=== PATIENT | female | born 1980 | race Caucasian/White ===

== ENCOUNTER → 2025-09-05 09:50 | Outpatient (CLI) | payer OTHER, SELFPAY ==
--- NOTE | 2025-09-05 | DI.MRI.S_ITS ---
PROCEDURE: MR KNEE LT WO CON INDICATIONS: internal derangement of LT knee TECHNIQUE: Noncontrast sagittal PD fast spin echo and T2 fast spin echo with fat saturation, sagittal 3-D FLASH with fat saturation; coronal T1 spin echo and PD fast spin echo with fat saturation, and axial PD fast spin echo with fat saturation through the knee. COMPARISON: None. FINDINGS: Image quality: Excellent. Menisci: The medial and lateral menisci demonstrate normal morphology and internal signal. The meniscal root ligaments appear intact. Cruciate ligaments: Myxoid degenerative changes are noted in ACL. No ACL rupture. The PCL is intact. Medial structures: The medial collateral ligament appears thickened with surrounding edema. Visualized portions of the pes anserinus tendons appear normal. No abnormal bursal fluid. Lateral structures: The lateral collateral ligament, long and short heads of the biceps femoris tendon appear intact. The popliteus tendon appears intact. Iliotibial band appears normal. Anterior structures: Moderate grade partial-thickness tear involving medial patellofemoral ligament at its patellar insertion is seen. Slight lateral subluxation of patella is noted. Distal quadriceps tendon and patellar tendon are intact. Bones and cartilage: [id number] marrow edema involving anterior periphery of lateral femoral condyle and posterior medial periphery of patella. 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 Mild edema also noted in weight-bearing portion of lateral femoral condyle without discrete fracture line. Joint space: There is moderate knee joint fluid. No Beckett's cyst. Normal appearing synovial plicae are incidentally noted. IMPRESSION: 1. Finding is suggestive of reduced lateral patella dislocation with [id number] residual marrow edema involving anterior periphery of lateral femoral condyle and posterior medial aspect of patella. Moderate grade partial-thickness tear involving medial patellofemoral ligament at its patellar insertion. 2. 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 Low to moderate grade osteoarthritis and chondromalacia in medial and lateral femoral tibial compartments. Contusion versus changes related to osteoarthritis involving weight-bearing portion lateral femoral condyle. Moderate joint effusion, no loose bodies. 3. No gross focal meniscal tear. 4. Myxoid degenerative changes in ACL. No cruciate ligament rupture. 5. A low-grade MCL sprain/partial-thickness tear. Dictated by: Richmond Avendano M.D. on 09/05/2025 at 12:09 Approved by: Richmond Avendano M.D. on 09/05/2025 at 12:14
== END ==
LOC: MRI 09:51
PROVIDERS: PCP Nurse Practitioner Family; Referring Provider Nurse Practitioner Family; Visit Provider Nurse Practitioner Family
DX: S76.112A Strain of left quadriceps muscle, fascia and tendon, initial encounter (principal); S83.412A Sprain of medial collateral ligament of left knee, initial encounter; M17.12 Unilateral primary osteoarthritis, left knee; M22.42 Chondromalacia patellae, left knee; M23.92 Unspecified internal derangement of left knee; M25.462 Effusion, left knee
CPT/HCPCS: 73721